=== PATIENT | male | born 1945 | race Caucasian/White ===

== ENCOUNTER 2016-10-14 08:02 | Day surgery (SDC) | payer OTHER ==
[2016-10-14] MEDS ORDERED: MEPERIDINE HCL/PF 100 MG/ML AMP ONE (08:34)
[2016-10-14] MEDS ORDERED: MIDAZOLAM HCL 5 MG/5 ML VIAL ONE (08:34)
[2016-10-14] MEDS ORDERED: SIMETHICONE 40 MG/0.6 ML ML ONE (08:35)
[2016-10-14] MEDS: MIDAZOLAM HCL 5 MG/5 ML VIAL ONE ×4 (09:17→09:29)
[2016-10-14 10:39] VITALS: BP 124/86; PULSE 90; RESP 18
== END 2016-10-14 10:49 | disposition home or self-care (01) ==
LOC: SDS 08:02
PROVIDERS: ATTEND Internal Medicine Gastroenterology
DX: Z12.11 Encounter for screening for malignant neoplasm of colon (principal); D12.3 Benign neoplasm of transverse colon; K64.8 Other hemorrhoids
CPT/HCPCS: 45380; 88305; J2175; J2250; J7030